=== PATIENT | male | born 1960 | race Caucasian/White ===

== ENCOUNTER 2016-07-26 16:22 | Inpatient (IN) | payer OTHER ==
[~2016-07-26] VITALS: Ht 162.6 cm; Wt 70.3 kg
[~2016-07-26 16:22] MED LIST: ALLEGRA ALLERG180 M1 PO; CLINDAMYCIN HC300 MG PO; COZAAR50 MG PO; CUTIVATE0.05%; CUTIVATE0.05% TOP; FERROUS SULFAT325 M2 PO; FLUTICASON0.05 MG/Ac NS; GLUCOVANCE1 TA2 PO; LAC PO; LEVAQUIN750 MG PO; MEDDP PO; METFORMIN HCL500 M3 PO; MONTELUKAST SOD10 M1 PO; PRO2; PROVENTIL0.09 MG/A1 PO; SIMVASTATIN20 M1 PO
[2016-07-26 19:05] LABS: BASOPHIL % 0.5 % (0-2)
[2016-07-26 19:09] LABS: CALCIUM 9.4 mg/dL (8.5-10.1); CARBON DIOXIDE 31.1 mmol/L (21-32); CHLORIDE SERUM 100 mmol/L (98-107); CREATININE SERUM 0.6 mg/dL (0.7-1.3); GFR1 > 60 mL/min; GLUCOSE SERUM 76 mg/dL (74-106); POTASSIUM SERUM 4.3 mmol/L (3.5-5.1); SODIUM SERUM 137 mmol/L (136-145)
[2016-07-26 19:15] LABS: ALBUMIN 3.4 g/dL (3.4-5.0); ALKALINE PHOSPHATASE 83 U/L (46-116); ALT/SGPT 20 U/L (16-63); AMYLASE 86 U/L (25-115); AST/SGOT 27 U/L (15-37); BILIRUBIN TOTAL 0.39 mg/dL (0.20-1.00); HDL CHOLESTEROL 47 mg/dL (40-60); LIPASE 243 IU/L (73-393); MAGNESIUM 1.6 mg/dL (1.8-2.4)
[2016-07-26 19:21] LABS: PLATELET COUNT 408 x10^3mcL (130-400); RED CELL DISTRIBUTION WIDTH 16.4 % (11.5-14.5)
[2016-07-26 19:23] LABS: CHOLESTEROL 96 mg/dL (<200)
[2016-07-26] MEDS ORDERED: AMBIEN5 MG PO (19:39)
[2016-07-26] MEDS ORDERED: SIMVASTATIN20 M1 PO (19:39)
[2016-07-26] MEDS ORDERED: LOSARTAN POTASS50 M1 PO (19:39)
[2016-07-26] MEDS ORDERED: FLOVENT DI100 MCG/A1 IH (19:40)
[2016-07-26] MEDS ORDERED: ALBUTEROL SULFAT3 ML NEB (19:40)
[2016-07-26] MEDS ORDERED: ALLEGRA ALLERG180 M1 PO (19:41)
[2016-07-26] MEDS ORDERED: FERROUS SULFAT325 M2 PO (19:41)
[2016-07-26] MEDS ORDERED: VENTOLIN H0.09 MG/A1 INH (19:41)
[2016-07-26] MEDS ORDERED: MONTELUKAST SOD10 M1 PO (19:42)
[2016-07-26] MEDS ORDERED: FLOVENT HF0.044 MG/1 INH (19:42)
[2016-07-26] MEDS ORDERED: GLUCOVANCE1 TA2 PO (19:42)
[2016-07-26] MEDS ORDERED: PREDNISONE20 MG PO (19:42)
[2016-07-26] MEDS ORDERED: ESBRIET267 MG PO (19:44)
[2016-07-26] MEDS ORDERED: FLOVENT DI50 MCG/Ac1 IH (20:42)
[2016-07-26 21:40] VITALS: BP 113/53
[2016-07-27 06:00] VITALS: BP 102/56
[2016-07-27 07:52] LABS: CALCIUM 8.5 mg/dL (8.5-10.1); CARBON DIOXIDE 27.1 mmol/L (21-32); CHLORIDE SERUM 103 mmol/L (98-107); CREATININE SERUM 0.5 mg/dL (0.7-1.3); GFR1 > 60 mL/min; GLUCOSE SERUM 90 mg/dL (74-106); MAGNESIUM 1.5 mg/dL (1.8-2.4); POTASSIUM SERUM 4.1 mmol/L (3.5-5.1); SODIUM SERUM 138 mmol/L (136-145)
[2016-07-27 07:57] LABS: BASOPHIL % 0.3 % (0-2); PLATELET COUNT 378 x10^3mcL (130-400); RED CELL DISTRIBUTION WIDTH 16.3 % (11.5-14.5)
[2016-07-27 08:16] LABS: FREE THYROXINE INDEX 2.5 ug/dL (1.4-4.5); T4(THYROXINE) 6.5 ug/dL (4.7-13.3)
[2016-07-27 08:41] VITALS: BP 104/51
[2016-07-27 08:54] LABS: FREE T4 0.86 ng/dL (0.76-1.46)
[2016-07-27 09:19] LABS: T3 TOTAL 0.99 ng/mL
[2016-07-27 13:37] VITALS: BP 116/61
[2016-07-27 19:20] VITALS: BP 116/61
[2016-07-27] MEDS ORDERED: ZIT250 PO (19:48)
[2016-07-27] MEDS ORDERED: HEP5I SC (19:49)
[2016-07-27] MEDS ORDERED: IPRATROPIUM BROM3 M2 HHN ×2 (19:49)
[2016-07-27] MEDS ORDERED: BG FS (19:50)
[2016-07-27] MEDS ORDERED: PEP20 PO (19:50)
[2016-07-27] MEDS ORDERED: ECO81 PO (19:50)
[2016-07-27] MEDS ORDERED: HUMULIN R100 U/1 M1 SC (19:51)
[2016-07-27] MEDS ORDERED: LAC PO (19:51)
[2016-07-27] MEDS ORDERED: SOL40I IV (19:51)
[2016-07-27] MEDS ORDERED: THERA TABS1 TAB PO (19:52)
[2016-07-27 20:56] VITALS: BP 118/72
[2016-07-27 21:45] VITALS: BP 133/49
== END 2016-07-27 23:23 | disposition short-term general hospital (02) | DRG 193 ==
LOC: ED 16:22 → DU 19:32
PROVIDERS: Emergency Medicine; ADMIT Family Medicine
DX: J18.9 Pneumonia, unspecified organism (principal); J96.00 Acute respiratory failure, unspecified whether with hypoxia or hypercapnia; M94.0 Chondrocostal junction syndrome [Tietze]; E11.65 Type 2 diabetes mellitus with hyperglycemia; I10 Essential (primary) hypertension; E78.00 Pure hypercholesterolemia, unspecified; E83.42 Hypomagnesemia; D64.9 Anemia, unspecified; E78.5 Hyperlipidemia, unspecified; J84.10 Pulmonary fibrosis, unspecified
CPT/HCPCS: 36600; 80307; 82962; 83880; 84439; 94150; J0696; J1644; J1956; J2920; J3475; J7030; J7620; Q0092

== ENCOUNTER 2016-10-22 16:55 | Inpatient (IN) | payer OTHER ==
[~2016-10-22] VITALS: Ht 160 cm; Wt 75.4 kg
[~2016-10-22 16:55] MED LIST changes: +ALBUTEROL SULFAT3 ML NEB; +AMBIEN5 MG PO; +BG FS; +ECO81 PO; +ESBRIET267 MG PO; +FLOVENT DI100 MCG/A1 IH; +FLOVENT DI50 MCG/Ac1 IH; +FLOVENT HF0.044 MG/1 INH; +HEP5I SC; +HUMULIN R100 U/1 M1 SC; +IPRATROPIUM BROM3 M2 HHN; +LOSARTAN POTASS50 M1 PO; +PEP20 PO; +PREDNISONE20 MG PO; +SOL40I IV; +THERA TABS1 TAB PO; +VENTOLIN H0.09 MG/A1 INH; +ZIT250 PO
--- NOTE | 2016-10-22 18:15 | NUR ---
IT DESKTOP SUPPORT SPECIALIST AT BEDSIDE.
[2016-10-22 18:24] LABS: BASOPHIL % 0.4 % (0-2)
[2016-10-22 18:26] LABS: RED CELL DISTRIBUTION WIDTH 15.5 % (11.5-14.5)
[2016-10-22 18:27] LABS: PLATELET COUNT 514 x10^3mcL (130-400)
--- NOTE | 2016-10-22 18:35 | NUR ---
METAL EXPEDITER AT BEDSIDE PROVIDING RESPIRATORY TX.
--- NOTE | 2016-10-22 18:36 | NUR ---
PT C/O COUGH X 3 WKS AND BODY ACHES. PT REPORTS HX OF PULMONARY FIBROSIS SINCE Jan. PT REPORTS NO MEDS TAKEN PRIOR TO ED ARRIVAL. PT REPORTS RIB PAIN BILATERALLY WHEN COUGHING. COARSE BREATH SOUNDS HEARD UPON AUSCULTATION ON PT UPPER ANTERIOR LOBES. PT ON O2 FROM HOME SET AT 2L. PT ALERT AND AWAKE. BREATHING EVEN AND UNLABORED. AT BEDSIDE.
[2016-10-22 18:55] LABS: ALKALINE PHOSPHATASE 85 U/L (46-116); ALT/SGPT 22 U/L (16-63); AST/SGOT 20 U/L (15-37); BILIRUBIN TOTAL 0.38 mg/dL (0.20-1.00); CALCIUM 8.9 mg/dL (8.5-10.1); CARBON DIOXIDE 24.8 mmol/L (21-32); CHLORIDE SERUM 98 mmol/L (98-107); CREATININE SERUM 0.7 mg/dL (0.7-1.3); GFR1 > 60 mL/min; POTASSIUM SERUM 4.2 mmol/L (3.5-5.1); SODIUM SERUM 136 mmol/L (136-145)
[2016-10-22 18:56] LABS: ALBUMIN 2.9 g/dL (3.4-5.0); TOTAL PROTEIN, SERUM 8.9 g/dL (6.4-8.2)
[2016-10-22 18:58] LABS: GLUCOSE SERUM 49 mg/dL (74-106)
--- NOTE | 2016-10-22 19:05 | NUR ---
PT GIVEN 2 ORANGE JUICE BOXES AND A TURKEY SANDWICH PER DR PAPPAS ORDERS. PT IS SITTIN UP AWAKE AND ALERT WITH NO DISTRESS NOTED. PT HAS CALL LIGHT IN REACH WITH FAMILY AT BEDSIDE.
--- NOTE | 2016-10-22 19:21 | NUR ---
CHANGE OF SHIFT REPORT GIVEN TO KRISHAN TURNER TO CONTINUE CARE
--- NOTE | 2016-10-22 19:24 | NUR ---
REPORT RECEIVED FROM GARFIELD NICKERSON TO ENDORSE CARE.
--- NOTE | 2016-10-22 19:37 | NUR ---
BS 98 MG/DL
--- NOTE | 2016-10-22 20:25 | NUR ---
PT MEDICATED PER ORDER. SEE EMAR.
[2016-10-22 20:27] LABS: MAGNESIUM 1.7 mg/dL (1.8-2.4); PHOSPHOROUS 3.4 mg/dL (2.5-4.9)
[2016-10-22 20:30] LABS: T3 TOTAL 0.74 ng/mL
[2016-10-22] MEDS ORDERED: ESCITALOPRAM10 M1 PO (20:35)
[2016-10-22] MEDS ORDERED: VERAMYST27.5 MCG/1 (20:35)
[2016-10-22] MEDS ORDERED: ESBRIET267 MG (20:35)
[2016-10-22] MEDS ORDERED: IPRATROPIUM BR2.5 ML (20:36)
[2016-10-22 20:38] LABS: FREE T4 1.14 ng/dL (0.76-1.46); FREE THYROXINE INDEX 2.1 ug/dL (1.4-4.5)
--- NOTE | 2016-10-22 20:46 | NUR ---
REPORT GIVEN TO NILS NICKERSON TO [facility].
--- NOTE | 2016-10-22 20:55 | NUR ---
RECEIVED PT FROM ED [employer] [employer], CAME IN DUE TO COUGH AND BODY ACHES X3 WEEKS. AAOX4. NO SOB NOTED, ON 3LPM/NC, O2 SAT=93%. C/O DRY COUGH, LUNG SOUNDS CTA. C/O 8/10 ACHING CHEST PAIN, NON-RADIATING, NSR ON THE MONITOR. DENIES ABDOMINAL DISCOMFORT. SIDE RAILS UPX2. CALL LIGHT ON REACH. ENDORSED
[2016-10-22 21:08] VITALS: BP 110/60
[2016-10-22 21:16] VITALS: Ht 160 cm; Wt 75.4 kg
--- NOTE | 2016-10-22 21:42 | NUR ---
RECEIVED PT FROM ED, C/O CHEST PAIN 10/24, MEDICATED PER EMAR. ORIENTED PT TO ROOM. BED IN LOWEST POSITION, SIDE RAILS UP X2, CALL LIGHT WITHIN REACH. WILL CONTINUE TO MONITOR.
--- NOTE | 2016-10-23 00:33 | NUR ---
RECEIVED CALL FROM PT'S INSURANCE, PT MAY POSSIBLY BE TRANSFERRED. DR JOHNSON INFORMED. NO ACUTE DISTRESS. WILL CONTINUE TO MONITOR.
[2016-10-23 01:29] VITALS: BP 110/60
--- NOTE | 2016-10-23 05:56 | NUR ---
PT SLEPT PERIODICALLY THROUGHOUT NIGHT, NO ACUTE DISTRESS. ALL NEEDS MET AND ATTENDED TO. NO SIGNIFICANT CHANGES. IV PATENT AND INTACT. MEDICATED PAIN PER EMAR. BED IN LOWEST POSITION, SIDE RAILS UP X2, SCDS IN PLACE, CALL LIGHT WITHIN REACH. WILL ENDORSE CARE TO ONCOMING NURSE.
[2016-10-23 06:04] VITALS: BP 104/50
[2016-10-23 06:24] LABS: microscopic required? NO
[2016-10-23 07:15] LABS: UA SPECIFIC GRAVITY <=1.005 (1.005-1.035); urine erythrocyte NEGATIVE (NEGATIVE)
--- NOTE | 2016-10-23 07:50 | NUR ---
RECEIVED PT IN BED. ASSESSED AND DOCUMENTED. DENIES PAIN THIS TIME. NO SOB NOTED. SAFTEY PRECAUTIONS ON. WILL MONITOR.
--- NOTE | 2016-10-23 08:08 | NUR ---
AND RESIDENTS DID ROUNDS. EXPLAINED THE PLAN OF CARE AND ANSWERED ALL PT'S QUESTIONS.
[2016-10-23 08:53] LABS: AMPHETAMINE QUAL UR NONE DETECTED (NEG <=1000)
[2016-10-23 09:58] LABS: BASOPHIL % 0.4 % (0-2)
[2016-10-23 09:59] LABS: PLATELET COUNT 461 x10^3mcL (130-400); RED CELL DISTRIBUTION WIDTH 16.1 % (11.5-14.5)
[2016-10-23 10:13] VITALS: BP 113/46
[2016-10-23 10:14] LABS: CALCIUM 8.4 mg/dL (8.5-10.1); CARBON DIOXIDE 30.4 mmol/L (21-32); CHLORIDE SERUM 98 mmol/L (98-107); CREATININE SERUM 0.8 mg/dL (0.7-1.3); GFR1 > 60 mL/min; GLUCOSE SERUM 251 mg/dL (74-106); POTASSIUM SERUM 4.7 mmol/L (3.5-5.1); SODIUM SERUM 132 mmol/L (136-145)
--- NOTE | 2016-10-23 10:25 | NUR ---
PT TEMP WAS 100.7 AT 0923.TYLENOL PO 650 MG GIVEN ORDERED. RECHECKED AFTER AN HOUR TEMP IS 98.8 F.
[2016-10-23 13:20] VITALS: BP 109/47
--- NOTE | 2016-10-23 13:20 | NUR ---
CLINICAL DIETITIAN NOTIFIED TEMP 100.3 F.PUT AIR CONDITION IN THE ROOM. RECHECKED THE TEMP 30 MIN AFTER IT IS 97.8.
--- NOTE | 2016-10-23 15:05 | NUR ---
PT RESTING IN BED COMFORTABLY. DENIES PAIN THIS TIME. NO SOB NOTED.
[2016-10-23] MEDS ORDERED: HUMULIN R100 U/1 M1 SC (17:43)
[2016-10-23] MEDS ORDERED: SOL40I IV (17:44)
[2016-10-23] MEDS ORDERED: PHECLUD PO (17:45)
[2016-10-23] MEDS ORDERED: DEXPF IV (17:45)
[2016-10-23] MEDS ORDERED: LEVOFLOXACIN I150 ML IV (17:47)
[2016-10-23 17:50] VITALS: BP 113/55
--- NOTE | 2016-10-23 18:00 | NUR ---
CALLED [facility].GIVE REPORT TO KRISHAN COLLADO. INFORMED PT AND GOT TRANSFER ACKNOWLEDGEMENT.
[2016-10-23 18:42] VITALS: BP 113/55
--- NOTE | 2016-10-23 19:01 | NUR ---
PT RESTING IN BED COMFORTABLY. DENIES PAIN THIS TIME. NO SOB NOTED. PT WILL TRANSFER TO [facility]. TRANSFER PACKET IS DONE AND TRANSPORTATION [facility] WILL COME AT 1999 PER HERB. GAVE REPORT AND GAVE TRANSFER PACKET TO [facility] NURSE [facility].
--- NOTE | 2016-10-23 19:46 | NUR ---
PICKED UP BY [facility]. TRANSFER PACKET GIVEN. IN NO APPARENT DISTRESS.
== END 2016-10-23 19:45 | disposition short-term general hospital (02) | DRG 871 ==
LOC: ED 16:55 → DU 19:10
PROVIDERS: Emergency Medicine; ADMIT Family Medicine
DX: A41.9 Sepsis, unspecified organism (principal); J18.9 Pneumonia, unspecified organism; G93.41 Metabolic encephalopathy; D68.69 Other thrombophilia; E44.0 Moderate protein-calorie malnutrition; E87.1 Hypo-osmolality and hyponatremia; J84.112 Idiopathic pulmonary fibrosis; E11.649 Type 2 diabetes mellitus with hypoglycemia without coma; E83.42 Hypomagnesemia; F32.9 Major depressive disorder, single episode, unspecified; I10 Essential (primary) hypertension; E02 Subclinical iodine-deficiency hypothyroidism; E66.3 Overweight; E78.00 Pure hypercholesterolemia, unspecified; D63.8 Anemia in other chronic diseases classified elsewhere; Z79.4 Long term (current) use of insulin; Z99.81 Dependence on supplemental oxygen; Z68.29 Body mass index [BMI] 29.0-29.9, adult; Z79.84 Long term (current) use of oral hypoglycemic drugs; Z87.01 Personal history of pneumonia (recurrent); Z79.82 Long term (current) use of aspirin; Z79.899 Other long term (current) drug therapy
CPT/HCPCS: 82962; 83880; 84439; 94150; J0696; J1956; J2270; J2930; J7030; J7613; J7620; J7626; J7644; Q0092

== ENCOUNTER 2016-12-17 07:16 | Inpatient (IN) | payer OTHER ==
[~2016-12-17] VITALS: Ht 160 cm; Wt 67.6 kg
[~2016-12-17 07:16] MED LIST changes: +DEXPF IV; +ESBRIET267 MG; +ESCITALOPRAM10 M1 PO; +IPRATROPIUM BR2.5 ML; +LEVOFLOXACIN I150 ML IV; +PHECLUD PO; +VERAMYST27.5 MCG/1
[2016-12-17 08:17] LABS: BASOPHIL % 0.1 % (0-2)
[2016-12-17 08:18] LABS: PLATELET COUNT 126 x10^3mcL (130-400); RED CELL DISTRIBUTION WIDTH 18.5 % (11.5-14.5)
[2016-12-17 08:26] LABS: CALCIUM 8.3 mg/dL (8.5-10.1); CARBON DIOXIDE 28.4 mmol/L (21-32); CHLORIDE SERUM 96 mmol/L (98-107); CREATININE SERUM 0.7 mg/dL (0.7-1.3); GFR1 > 60 mL/min; GLUCOSE SERUM 157 mg/dL (74-106); POTASSIUM SERUM 3.5 mmol/L (3.5-5.1); SODIUM SERUM 132 mmol/L (136-145)
[2016-12-17 08:36] LABS: ALKALINE PHOSPHATASE 85 U/L (46-116); ALT/SGPT 18 U/L (16-63); AST/SGOT 14 U/L (15-37); BILIRUBIN TOTAL 0.3 mg/dL (0.20-1.00)
[2016-12-17 08:37] LABS: ALBUMIN 2.5 g/dL (3.4-5.0)
[2016-12-17 08:49] LABS: CK-MB < 0.5 ng/mL (0-3.6); CREATINE KINASE 18 U/L (39-308)
[2016-12-17 12:40] VITALS: BP 95/41
[2016-12-17 12:44] LABS: MAGNESIUM 1.3 mg/dL (1.8-2.4); PHOSPHOROUS 3.3 mg/dL (2.5-4.9)
[2016-12-17 12:48] LABS: T3 TOTAL 0.76 ng/mL
[2016-12-17 12:54] LABS: FREE T4 0.93 ng/dL (0.76-1.46)
[2016-12-17 12:55] LABS: FREE THYROXINE INDEX 1.8 ug/dL (1.4-4.5); T4(THYROXINE) 4.6 ug/dL (4.7-13.3)
[2016-12-17 13:14] VITALS: BP 98/53
[2016-12-17 17:00] VITALS: BP 100/46
[2016-12-17 20:41] VITALS: BP 90/41
[2016-12-18 05:50] VITALS: BP 94/53
[2016-12-18 06:29] LABS: CALCIUM 8.6 mg/dL (8.5-10.1); CARBON DIOXIDE 28.5 mmol/L (21-32); CHLORIDE SERUM 104 mmol/L (98-107); CREATININE SERUM 0.7 mg/dL (0.7-1.3); GFR1 > 60 mL/min; GLUCOSE SERUM 206 mg/dL (74-106); POTASSIUM SERUM 4.4 mmol/L (3.5-5.1); SODIUM SERUM 140 mmol/L (136-145)
[2016-12-18 06:50] LABS: BASOPHIL % 0 % (0-2); PLATELET COUNT 107 x10^3mcL (130-400)
[2016-12-18 09:14] VITALS: BP 142/68
[2016-12-18 12:14] VITALS: BP 100/55
[2016-12-18 17:36] VITALS: BP 108/53
[2016-12-18 22:26] VITALS: BP 114/45
[2016-12-19 05:57] LABS: BASOPHIL % 0.1 % (0-2)
[2016-12-19 06:09] VITALS: BP 105/46
[2016-12-19 06:20] LABS: PLATELET COUNT 118 x10^3mcL (130-400); RED CELL DISTRIBUTION WIDTH 19.2 % (11.5-14.5)
[2016-12-19 06:23] LABS: CALCIUM 8.6 mg/dL (8.5-10.1); CARBON DIOXIDE 25.4 mmol/L (21-32); CHLORIDE SERUM 108 mmol/L (98-107); CREATININE SERUM 0.7 mg/dL (0.7-1.3); GFR1 > 60 mL/min; GLUCOSE SERUM 222 mg/dL (74-106); MAGNESIUM 1.8 mg/dL (1.8-2.4); PHOSPHOROUS 2.8 mg/dL (2.5-4.9); POTASSIUM SERUM 4.7 mmol/L (3.5-5.1); SODIUM SERUM 140 mmol/L (136-145)
[2016-12-19] MEDS ORDERED: LEVAQUIN750 MG PO (06:30)
[2016-12-19] MEDS ORDERED: TOR10 PO (06:33)
[2016-12-19] MEDS ORDERED: BD LACTINEX1.4 MG PO (07:33)
[2016-12-19 09:05] VITALS: BP 114/59
[2016-12-19] MEDS ORDERED: NORCO1 TA2 PO (09:17)
[2016-12-19 13:20] VITALS: BP 117/53
[2016-12-19 15:07] VITALS: BP 117/53
== END 2016-12-19 17:03 | disposition home or self-care (01) | DRG 177 ==
LOC: ED 07:16 → DU 11:16
PROVIDERS: Emergency Medicine; ADMIT Family Medicine Sports Medicine
DX: J69.0 Pneumonitis due to inhalation of food and vomit (principal); E43 Unspecified severe protein-calorie malnutrition; J96.21 Acute and chronic respiratory failure with hypoxia; R65.10 Systemic inflammatory response syndrome (SIRS) of non-infectious origin without acute organ dysfunction; E22.2 Syndrome of inappropriate secretion of antidiuretic hormone; J96.10 Chronic respiratory failure, unspecified whether with hypoxia or hypercapnia; D68.69 Other thrombophilia; I10 Essential (primary) hypertension; J84.10 Pulmonary fibrosis, unspecified; F32.9 Major depressive disorder, single episode, unspecified; D63.8 Anemia in other chronic diseases classified elsewhere; I95.9 Hypotension, unspecified; D64.9 Anemia, unspecified; E83.42 Hypomagnesemia; E11.65 Type 2 diabetes mellitus with hyperglycemia; E02 Subclinical iodine-deficiency hypothyroidism; M17.0 Bilateral primary osteoarthritis of knee; E66.3 Overweight; Z79.4 Long term (current) use of insulin; Z99.81 Dependence on supplemental oxygen; Z68.29 Body mass index [BMI] 29.0-29.9, adult; Z79.84 Long term (current) use of oral hypoglycemic drugs; Z23 Encounter for immunization
CPT/HCPCS: 82962; 83880; 84439; 90658; 90732; 94150; J1885; J1956; J2270; J2543; J2920; J3010; J3475; J7030; J7620; Q0092

== ENCOUNTER 2016-12-21 08:46 | Inpatient (IN) | payer OTHER ==
[~2016-12-21] VITALS: Ht 160 cm; Wt 62.3 kg
[~2016-12-21 08:46] MED LIST changes: +BD LACTINEX1.4 MG PO; +NORCO1 TA2 PO; +TOR10 PO
[2016-12-21 10:14] LABS: CALCIUM 8.7 mg/dL (8.5-10.1); CARBON DIOXIDE 27.8 mmol/L (21-32); CHLORIDE SERUM 95 mmol/L (98-107); CREATININE SERUM 0.7 mg/dL (0.7-1.3); GFR1 > 60 mL/min; GLUCOSE SERUM 114 mg/dL (74-106); POTASSIUM SERUM 3.3 mmol/L (3.5-5.1); SODIUM SERUM 129 mmol/L (136-145)
[2016-12-21 10:20] LABS: PLATELET COUNT 178 x10^3mcL (130-400)
[2016-12-21 10:27] LABS: RED CELL DISTRIBUTION WIDTH 18.9 % (11.5-14.5)
[2016-12-21 11:15] LABS: ATYPICAL LYMPH 1 %; BAND NEUTROPHIL 6 % (0-10); BASOPHIL 0 % (0-2); MONOCYTE 2 % (0-7); SEGMENTED NEUTROPHILS 88 % (37-75)
[2016-12-21 11:16] LABS: PLATELET MORPHOLOGY LARGE PLATELET SEEN; rbc morphology (normal/abnorm) ABNORMAL (NORMAL)
[2016-12-21 13:23] LABS: MAGNESIUM 1.3 mg/dL (1.8-2.4); PHOSPHOROUS 3.3 mg/dL (2.5-4.9)
[2016-12-21 13:51] LABS: ALBUMIN 2.7 g/dL (3.4-5.0); BILIRUBIN DIRECT 0.33 mg/dL (0.0-0.2); BILIRUBIN TOTAL 0.74 mg/dL (0.20-1.00); TOTAL PROTEIN, SERUM 7.5 g/dL (6.4-8.2)
[2016-12-21 15:30] VITALS: BP 104/44
[2016-12-21 17:01] VITALS: BP 104/44
[2016-12-21 20:00] VITALS: BP 91/56
[2016-12-21 20:44] LABS: RED BLOOD CELLS 4.5 M/mm3 (4.52-5.90)
[2016-12-21 21:37] VITALS: BP 91/57
[2016-12-21 22:43] LABS: IRON 13 ug/dL (65-170); TOTAL IRON BINDING CAPACITY 241 ug/dL (250-450)
[2016-12-21 22:53] LABS: microscopic required? NO
[2016-12-21 23:22] LABS: urine erythrocyte NEGATIVE (NEGATIVE)
[2016-12-21 23:44] LABS: AMPHETAMINE QUAL UR NONE DETECTED (NEG <=1000)
[2016-12-22 05:38] VITALS: BP 94/61
[2016-12-22 06:48] LABS: CARBON DIOXIDE 28.6 mmol/L (21-32); CHLORIDE SERUM 101 mmol/L (98-107); CREATININE SERUM 0.8 mg/dL (0.7-1.3); GFR1 > 60 mL/min; GLUCOSE SERUM 328 mg/dL (74-106); MAGNESIUM 2.8 mg/dL (1.8-2.4); PHOSPHOROUS 3.4 mg/dL (2.5-4.9); POTASSIUM SERUM 4.7 mmol/L (3.5-5.1); SODIUM SERUM 136 mmol/L (136-145)
[2016-12-22 07:05] LABS: BASOPHIL % 0.1 % (0-2); PLATELET COUNT 191 x10^3mcL (130-400)
[2016-12-22 09:50] VITALS: BP 91/52
[2016-12-22 13:58] VITALS: BP 101/56
[2016-12-22 16:54] VITALS: BP 106/66
[2016-12-22 21:33] VITALS: BP 94/56
[2016-12-22 22:00] LABS: OSMOLALITY SERUM 303 mOsm/kg (278-298)
[2016-12-23 06:31] VITALS: BP 105/58
[2016-12-23 07:03] LABS: BASOPHIL % 0.1 % (0-2); PLATELET COUNT 241 x10^3mcL (130-400)
[2016-12-23 07:17] LABS: RED CELL DISTRIBUTION WIDTH 19.1 % (11.5-14.5)
[2016-12-23 07:38] LABS: CALCIUM 8.7 mg/dL (8.5-10.1); CARBON DIOXIDE 30.1 mmol/L (21-32); CHLORIDE SERUM 102 mmol/L (98-107); CREATININE SERUM 0.7 mg/dL (0.7-1.3); GFR1 > 60 mL/min; GLUCOSE SERUM 251 mg/dL (74-106); MAGNESIUM 1.7 mg/dL (1.8-2.4); PHOSPHOROUS 3.1 mg/dL (2.5-4.9); POTASSIUM SERUM 5.1 mmol/L (3.5-5.1); SODIUM SERUM 137 mmol/L (136-145)
[2016-12-23 08:00] VITALS: BP 104/49
[2016-12-23 12:15] VITALS: BP 101/55
[2016-12-23] MEDS ORDERED: ZOS3PM IV (15:23)
[2016-12-23] MEDS ORDERED: IPRATROPIUM BROM3 M2 HHN ×2 (15:25)
[2016-12-23] MEDS ORDERED: FER300 PO (15:26)
[2016-12-23] MEDS ORDERED: HEP100I IV (15:27)
[2016-12-23] MEDS ORDERED: HEP5I IV (15:27)
[2016-12-23] MEDS ORDERED: NIT0.4 SL ×2 (15:31)
[2016-12-23] MEDS ORDERED: LIPI10 PO (15:31)
[2016-12-23] MEDS ORDERED: METOPROLOL TART25 M1 PO (15:32)
[2016-12-23] MEDS ORDERED: ECO81 PO (15:32)
[2016-12-23] MEDS ORDERED: MOR2I IV (15:33)
[2016-12-23] MEDS ORDERED: APAP/HYDROCODON1 T13 PO (15:33)
[2016-12-23] MEDS ORDERED: LEXAPRO10 MG PO (15:34)
[2016-12-23] MEDS ORDERED: TYL325 PO (15:34)
[2016-12-23] MEDS ORDERED: AMB5 PO (15:35)
[2016-12-23] MEDS ORDERED: BG FS (15:35)
[2016-12-23] MEDS ORDERED: DEXPF IV (15:36)
[2016-12-23] MEDS ORDERED: COL100 PO (15:37)
[2016-12-23] MEDS ORDERED: ZOFI IV (15:37)
[2016-12-23] MEDS ORDERED: SOL40I IV (15:38)
[2016-12-23] MEDS ORDERED: LAC PO (15:38)
[2016-12-23] MEDS ORDERED: METFORMIN HCL1000 MG PO (15:40)
[2016-12-23] MEDS ORDERED: HUMULIN R100 U/1 M1 SC (15:41)
[2016-12-23 16:21] VITALS: Ht 160 cm; Wt 62.3 kg
[2016-12-23 17:19] VITALS: BP 101/55
== END 2016-12-23 19:10 | disposition short-term general hospital (02) | DRG 871 ==
LOC: ED 08:46 → DU 14:06
PROVIDERS: Emergency Medicine Emergency Medical Services; ADMIT Student in an Organized Health Care Education/Training Program
DX: A41.9 Sepsis, unspecified organism (principal); J69.0 Pneumonitis due to inhalation of food and vomit; N17.0 Acute kidney failure with tubular necrosis; E43 Unspecified severe protein-calorie malnutrition; J96.21 Acute and chronic respiratory failure with hypoxia; I21.4 Non-ST elevation (NSTEMI) myocardial infarction; J44.1 Chronic obstructive pulmonary disease with (acute) exacerbation; E87.1 Hypo-osmolality and hyponatremia; I10 Essential (primary) hypertension; E78.00 Pure hypercholesterolemia, unspecified; J84.10 Pulmonary fibrosis, unspecified; G89.29 Other chronic pain; M17.0 Bilateral primary osteoarthritis of knee; Z82.49 Family history of ischemic heart disease and other diseases of the circulatory system; F17.200 Nicotine dependence, unspecified, uncomplicated; D64.9 Anemia, unspecified; E11.65 Type 2 diabetes mellitus with hyperglycemia; Z68.24 Body mass index [BMI] 24.0-24.9, adult; E87.6 Hypokalemia; E83.42 Hypomagnesemia; E03.9 Hypothyroidism, unspecified; F32.9 Major depressive disorder, single episode, unspecified
CPT/HCPCS: 82962; 83880; 85378; 86480; 86580; 87116; 87206; C1769; C1887; C1894; J1644; J1956; J2001; J2543; J2920; J2930; J3475; J3490; J7030; J7620; Q0092; Q9967